=== PATIENT | female | born 1955 ===

== ENCOUNTER 2022-11-08 10:00 | Outpatient (RCR) | payer MEDICARE, SELFPAY | END 2022-11-21 09:05 | disposition home or self-care (01) | LOC: HO.PT 10:00 | PROVIDERS: Visit Provider Obstetrics & Gynecology | DX: N39.46 Mixed incontinence (principal) | CPT/HCPCS: 97110; 97112; 97140; 97162 ==

== ENCOUNTER 2024-07-23 13:25 | Outpatient (AMB) | payer MEDICARE, SELFPAY ==
[2024-07-23 13:33] VITALS: BP 126/68; PULSE 86; O2SAT 97; BMI 42.3
--- NOTE | 2024-07-23 13:33 | MHC.OFFVIS ---
Vital Signs 07/23/24 13:33 Height 5 ft 0.5 in Weight 220 lb 4 oz BMI 42.3 BP 126/68 Blood Pressure Location Lt brachial Position Sitting Pulse 86 Pulse Source Pulse Oximeter Pulse Oximetry (%) 97 Oxygen Delivery Method Room Air Intake Visit Reasons: arthralgia Intake Note: Patient presents for arthralgia follow up today. Allergies No Known Allergies [No Known Allergies*] Allergy (Unverified 07/23/24 13:37) HPI HPI arthralgia: Details: Daughter is present who interprets. Hebrew-speaking patient. She is experiencing pain mainly in her lower back and bilateral hips left worse than right. She continues to have right radiculopathy. When she was participating in physical therapy for lower back management, she had benefit. She is not compliant with doing exercises at home. She continues to feel a lump lateral hip region, which is painful for patient. It has not grown in size per patient. Review of Systems Const All systems reviewed & are unremarkable except as noted in HPI and below Physical Exam Vital Signs: Last Vital Signs Pulse 86 07/23/24 13:33 BP 126/68 07/23/24 13:33 Pulse Ox 97 07/23/24 13:33 Oxygen Delivery Method Room Air 07/23/24 13:33 BMI result Body Mass Index 42.3 Const Other: General: Comfortable CVS: RRR Respiratory: clear to auscultation bilaterally. Good respiratory effort Skin: No lesions seen MSK: Tender to palpate lower lumbar spinous process. Tender paraspinal muscles. Limited full lumbar flexion. Bilateral trochanteric bursa tenderness found. She has limited full external rotation of bilateral hips. Superior to right greater trochanter, she has a palpable mass about 2 cm in length greatest diameter and about a cm wide. No discoloration. Office Procedures AMB Joint Injection/Aspiration Joint Injection/Aspiration Details: Bilateral trochanteric bursa Prep: site was prepped using aseptic technique Injected into each site: 40 mg of, Kenalog, with 1 mL of and 1% plain lidocaine Procedure: The patient tolerated the procedure well. Postprocedure protocol was discussed with patient. Coding 65512 - Bilateral Large Joint Procedure code (CPT) selection complete AMB Joint Injection/Aspiration Coding 90663 - Bilateral Large Joint Procedure code (CPT) selection complete Office Meds lidocaine (PF) 10 mg/mL (1 %) injection solution Performing Provider: Norman Wadsworth MD Performing Location: [facility] Administered by: Norman Wadsworth MD on 07/23/24 21:24 Dose Route Admin Location Dispensed Lot Number Expiration Date [facility] Manager Relocation 10 mg Infiltration 2 mL [id number] [employer] Kenalog 40 mg/mL suspension for injection Performing Provider: Norman Wadsworth MD Performing Location[place] [facility] Administered by: Norman Wadsworth MD on 07/23/24 21:24 Dose Route Admin Location Dispensed Lot Number Expiration Date [facility] Manager Relocation 40 mg intrabursal 1 mL AP [id number] [employer] lidocaine (PF) 10 mg/mL (1 %) injection solution Performing Provider: Norman Wadsworth MD Performing Location: [facility] Administered by: Norman Wadsworth MD on 07/23/24 21:24 Dose Route Admin Location Dispensed Lot Number Expiration Date [facility] Manager Relocation 10 mg Infiltration 2 mL [id number] [employer] Kenalog 40 mg/mL suspension for injection Performing Provider: Norman Wadsworth MD Performing Location: [facility] Administered by: Norman Wadsworth MD on 07/23/24 21:24 Dose Route Admin Location Dispensed Lot Number Expiration Date [facility] Manager Relocation 40 mg intrabursal 1 mL AP [id number] [employer] Assessment & Plan Assessment & Plan (1) Lumbar spondylosis: Comment: With right radiculopathy. Myofascial strain is contributing from paraspinal muscles. Pain is uncontrolled. She had benefit with physical therapy. She agreed to do another round of physical therapy. Code(s): M47.816 - Spondylosis without myelopathy or radiculopathy, lumbar region Category: Medical Plan: PT ordered Apply heat to back daily Return to clinic in 3 months (2) Strain of lumbar paraspinal muscle: Comment: Uncontrolled lower back pain. Code(s): S39.012A - Strain of muscle, fascia and tendon of lower back, initial encounter Category: Medical Qualifiers: Encounter type: initial encounter Qualified Code(s): S39.012A - Strain of muscle, fascia and tendon of lower back, initial encounter Plan: See above (3) Greater trochanteric bursitis of both hips: Comment: Uncontrolled pain Code(s): M70.61 - Trochanteric bursitis, right hip; M70.62 - Trochanteric bursitis, left hip Category: Medical Plan: Patient received bilateral trochanteric bursa cortisone injections Return to clinic in 3 months (4) Palpable mass of soft tissue of thigh: Comment: She has a painful mass superior to right greater trochanter (2 cm x 1 cm) that has been present for at least 6 months. Unclear etiology Code(s): M79.89 - Other specified soft tissue disorders Category: Medical Plan: We will try to arrange ultrasound soft tissue for further evaluation of mass. Orders: Orders US extremity nonvascular Today M79.89 - Other specified soft tissue disorders PT Evaluation and Treatment 07/23/24 M47.816 - Spondylosis without myelopathy or radiculopathy, lumbar region, S39.012A - Strain of muscle, fascia and tendon of lower back, initial encounter AMB Joint Injection/Aspiration 07/23/24 M70.61 - Trochanteric bursitis, right hip, M70.62 - Trochanteric bursitis, left hip AMB Joint Injection/Aspiration 07/23/24 M70.61 - Trochanteric bursitis, right hip, M70.62 - Trochanteric bursitis, left hip Coding Level of Care Code Est Pt Level 4 (29189) Complex EM visit Add On G2211 Diagnoses Lumbar spondylosis M47.816 Strain of lumbar paraspinous muscle, initial encounter S39.012A Encounter type: initial encounter Greater trochanteric bursitis of both hips M70.61; M70.62 Palpable mass of soft tissue of thigh M79.89 CPT Codes Coding - 46594 - Bilateral Large Joint: 04741 - Bilateral Large Joint ([id number]) Coding - 91830 - Bilateral Large Joint: 12015 - Bilateral Large Joint ([id number])
== END 2024-07-23 14:32 | disposition home or self-care (01) ==
PROVIDERS: PCP Nurse Practitioner Family; Visit Provider Internal Medicine Rheumatology
DX: M70.61 Trochanteric bursitis, right hip (principal); M70.62 Trochanteric bursitis, left hip
CPT/HCPCS: 20610

== ENCOUNTER → 2024-07-23 13:25 | Outpatient (BNVA) | payer MEDICARE, SELFPAY | PROVIDERS: PCP Nurse Practitioner Family; Visit Provider Internal Medicine Rheumatology | DX: M70.61 Trochanteric bursitis, right hip (principal); M70.62 Trochanteric bursitis, left hip; M47.26 Other spondylosis with radiculopathy, lumbar region; M79.89 Other specified soft tissue disorders; S39.012A Strain of muscle, fascia and tendon of lower back, initial encounter; X58.XXXA Exposure to other specified factors, initial encounter; Y93.9 Activity, unspecified; Y92.9 Unspecified place or not applicable; Y99.9 Unspecified external cause status | CPT/HCPCS: 20610; 99212; J2003; J3300 ==

== ENCOUNTER 2024-08-04 15:31 | Outpatient (REF) | payer OTHER, SELFPAY ==
--- NOTE | ~2024-08-04 | US_ITS ---
EXAMINATION: Ultrasound extremity nonvascular. CLINICAL INDICATION: Palpable soft tissue mass of the thigh. COMPARISON: None. FINDINGS: Imaging through the popliteal mass of the right upper thigh reveals no focal echogenic or hypoechoic mass. No fluid collection. The soft tissues are normal. Recommend: Unremarkable ultrasound right upper thigh. Electronically signed by: Surinder Hurd MD 08/05/2024 08:39 AM [facility]
--- OUTSIDE RECORDS SUMMARY | 2024-08-04 19:32 | XMS_ITS | Encounter Summary ---
Author Organization [facility] Address [address] [address] Phone Care Team Providers Care Director Of Strategic Alliances Name Role Phone Maki Vivas NP Primary Care Provider [phone] Reason for Visit * Reason Onset Date Comments Med Refill 06/26/2024 Encounter Details Date Type Department Care Team (Late st Contact Info) Description 06/26/2024 Refill [facility] [address] [phone] Giulia Brown [place] [address] [facility] [address] [place] [address] Social History Tobacco Use Types Packs/Day Years Used Date Smoking Tobacco: Never Smokeless Tobacco: Never Alcohol Use Standard Drinks/Week Comments No 0 (1 standard drink = 0.6 oz pur e alcohol) Comments Unknown Sex and Gender Information Value Date Recorded Sex Assigned at Not on file Legal Sex Female 4:48 PM EST Gender Identity Not on file Sexual Orientation Not on file documented as of this encounter Plan of Treatment Upcoming Encounters Date Type Department Care Team (Late st Contact Info) Description 10/20/2024 10:15 AM EDT Office Visit [facility] [address] [phone] Sasha Key ARNP [address] [address] documented as of this encounter Visit Diagnoses Not on filedocumented in this encounter Care Teams Director Of Strategic Alliances Relationship Specialty Start Date End Date Maki Vivas NP [address] [place] [address] PCP - General 07/19/20 documented as of this encounter
--- OUTSIDE RECORDS SUMMARY | 2024-08-04 19:32 | XMS_ITS | Encounter Summary ---
Author Organization [facility] Address [address] [facility] [address] [place] [address] Phone Care Team Providers Care Tack Puller Name Role Phone Maki Vivas NP Primary Care Provider [phone] Encounter Details Date Type Department Care Team (Late st Contact Info) Description 01/11/2021 Orders Only [facility] [address] [facility] [address] [place] [address] Provider, MD Saloni [address] [place] [id number] Social History Tobacco Use Types Packs/Day Years [...] Office Visit [facility] [address] [facility] [address] [place] [address] Sasha Key ARNP [address] [facility] [address] [place] [address] documented as of this encounter Procedures Procedure Name Priority Date/Time Associated Diagnosis Comments EXT RESULT ENTRY Routine 12/30/2020 documented in this encounter Results * EXT RESULT ENTRY (12/30/2020) us Historical Provider LAB BLOOD ORDERABLES Kasie l Result documented in this encounter Visit Diagnoses Not on filedocumented in this encounter Care Teams Tack Puller Relationship Specialty Start Date End Date Maki Vivas NP [address] [place] [address] PCP - General 07/19/20 documented as of this encounter
--- OUTSIDE RECORDS SUMMARY | 2024-08-04 19:32 | XMS_ITS | Clinical Summary ---
Author Organization [facility] Address [address] [facility] [address] [place] [address] Phone Care Team Providers Care Manufacturing Shift Supervisor Name Role Phone Maki Vivas NP Primary Care Provider [phone] Allergies Active Allergy Reactions Criticality Noted Date Comments Aripiprazole 02/13/2022 Other reaction(s): dyskinesia Canagliflozin Diarrhea,Rash Low 02/13/2022 Candesartan 02/13/2022 Lisinopril Other (see comments) 01/07/2021 Losartan 02/13/2022 Other reaction(s): muscle aches Medications albuterol HFA (Ventolin HFA) 108 (90 Base) MCG/ACT inhaler 2 puffs 2 (two) times a day Active fluticasone HFA (Flovent HFA) 220 MCG/ACT inhaler Comments: Filled Date: Jan 12 2016 12:00AM Patient Notes: TOME BUBBA INHALACION POR VIA ORAL DOS VECES AL CHACHO (RINSE MOUTH AND THR OAT AFTER USE) Duration: 30 6 Active insulin aspart (NovoLOG FLEXPEN) 100 UNIT/ML injection 36 units with breakfast, 34 units with lunch and 42 units with supper Active insulin glargine (Lantus SoloStar) 100 UNIT/ML injection Comments: Filled Date: Nov 23 2015 12:00AM Patient Notes: INJECT 80 UNITS SUBCUTANEOUS INJECTION DAILY AT BEDTIME Duration: 90 5 Active loratadine-pseud oephedrine (CLARITIN-D 24-hour) 10-240 MG per 24 hr tablet Take 1 tablet by mouth 1 (one) time each day Active simvastatin (ZOCOR) 20 MG tablet Comments: Filled Date: Jan 12 2016 12:00AM Patient Notes: TAKE 1 TABLET BY MOUTH DAILY Duration: 90 5 Active losartan (COZAAR) 50 MG tabletIndication s:Hypertensive disorder,Type 2 diabetes mellitus with other diabetic kidney complication (HCC) TOME DOS TABLETAS POR VIA ORAL TODOS LOS DEL RIO 180 tablet 3 3 Active acetaminophen (TYLENOL 8 HOUR) 650 MG 8 hr tablet Take 650 mg by mouth every 8 (eight) hours if needed for mild pain Do not crush, chew, or split. Active meloxicam (MOBIC) 15 MG tablet Take 15 mg by mouth 1 (one) time each day Active magnesium oxide (MAG-OX) 400 MG tabletIndication s:Hypomagnesemia Take 1 tablet (400 mg total) by mouth 1 (one) time each day 30 tablet 11 4 025 Active atenolol-chlorth alidone (TENORETIC) 100-25 MG per tabletIndication s:Hypertensive disorder Take 1 tablet by mouth 1 (one) time each day 30 tablet 11 4 025 Active Active Problems Problem Noted Date Diagnosed Date Allergic rhinitis 02/20/2023 02/20/2023 Anxiety 02/20/2023 02/20/2023 Arthritis 02/20/2023 02/20/2023 Gastroesophageal reflux disease 02/20/2023 02/20/2023 Hypoventilation 02/20/2023 02/20/2023 Incontinence 02/20/2023 02/20/2023 Nocturnal enuresis 02/20/2023 02/20/2023 Severe obesity 02/20/2023 02/20/2023 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 (02/20/2023): Grade 1 endometroid adenocarcinoma 06/201515 Grade 1 endometroid adenocarcinoma 06/2015 Asthma 02/13/2022 Depressive disorder 02/13/2022 Diabetes insipidus 02/13/2022 Family history of cancer of colon 02/13/2022 Obstructive sleep apnea syndrome 02/13/2022 Patient care statuses 02/13/2022 Hypertensive disorder 01/07/2021 Overview (02/20/2023): with hx of hyperfilitration Proteinuria 01/07/2021 Type 2 diabetes mellitus 01/07/2021 Hyperlipidemia 08/28/2008 Menopause 01/16/2008 Resolved Problems Problem Noted Date Diagnosed Date Resolved Date Wwghmqjoqya-jwptnqtfeq-cmbkp e inhibitor adverse reaction 02/13/2022 02/13/2022 Lumbosacral spondylosis 02/13/2022 08/0 02/2022 Obese abdomen 02/13/2022 02/13/2022 Tendinitis of shoulder region 02/13/2022 02/13/2022 Benign polyp of colon 04/28/20162021 Encounters Date Type Department Care Team Description 06/26/2024 Refill [facility] [address] [facility] [address] [place] [phone] Giulia Brown MA 06/25/2024 Refill [facility] [address] [facility] [address] [place] [phone] Lesley Dailey MA from Last 3 Months Immunizations Name Administration Dates Next Due Pfizer SARS-COV-2 03/24/2022,12/23/2020,12/03/19 21 Pneumococcal Conjugate 13-Valent 03/24/2022 Pneumococcal Polysaccharide 09/03/2020, 7 SARS-CoV-2, Unspecified 09/01/2021 Shingrix 01/12/2021,09/03/2020 Tdap 03/14/2018 Family History Medical History Relation Comments Cancer Father colon Diabetes Mother Relation Status Comments Father Mother Social History Tobacco Use Types Packs/Day Years Used Date Smoking Tobacco: Never Smokeless Tobacco: Never Tobacco Cessation:Counseling Given: No Alcohol Use Standard Drinks/Week Comments No 0 (1 standard drink = 0.6 oz pur e alcohol) Comments Unknown Sex and Gender Information Value Date Recorded Sex Assigned at Not on file Legal Sex Female 4:48 PM EST Gender Identity Not on file Sexual Orientation Not on file Last Filed Vital Signs Vital Sign Reading Time Taken Comments Blood Pressure 124/70 02/25/2024 2:27 PM EDT Pulse 70 02/25/2024 2:04 PM EDT Temperature - - Respiratory Rate - - Oxygen Saturation 97% 02/20/2023 2:39 PM EDT Inhaled Oxygen Concentration - - Weight 102 kg (225 lb) 02/25/2024 2:04 PM EDT Height 160 cm (5' 3 ) 01/11/2021 2:43 PM EDT Body Mass Index 39.86 01/11/2021 2:43 PM EDT Plan of Treatment Upcoming Encounters Date Type Department Care Team (Late st Contact Info) Description 10/20/2024 10:15 AM EDT Office Visit [facility] [address] [facility] [address] [place] [address] Sasha Key ARNP [address] [phone] Health Maintenance Due Date Last Done Comments Breast Cancer Screening 1955 Colorectal Cancer Screening: Annual FOBT 2006 Colorectal Cancer Screening: Colonoscopy 2006 Colorectal Cancer Screening: Sigmoidoscopy 2006 Diabetes: Ophthalmology Exam 08/09/2020 Diabetes: Pedal Pulse Checked 08/09/2020 Diabetes: Sensory Foot Exam 08/09/2020 Diabetes: Visual Foot Exam 08/09/2020 Diabetes: Hemoglobin A1C 04/01/2021 021, 12/04/2018 Influenza Vaccine (#1) 2024 Pneumococcal Vaccine: 65+ Years (4 of 4 - PPSV23 or PCV20) 09/03/2025 03/24/2022, 09/03/2020, 01/11/2007 Hepatitis B Vaccine Aged Out No longe r eligible based on patient's age to complete this topic Procedures Procedure Name Priority Date/Time Associated Diagnosis Comments EXT RESULT ENTRY Routine 12/30/2020 from Last 3 Months or Most Recently Relevant to Health Maintenance Results * (ABNORMAL) EXT RESULT ENTRY (12/30/2020) Glucose 166 60 - 200 Hemoglobin A1C 6.9(A) 4.0 - 6.0 12/30/2020 us Historical Provider LAB BLOOD ORDERABLES Kasie l Result from Last 3 Months or Most Recently Relevant to Health Maintenance Insurance ([id number]) ([id number]) Care Teams Manufacturing Shift Supervisor Relationship Specialty Start Date End Date Maki Vivas NP [address] [place] [address] PCP - General 07/19/20
== END 2024-08-04 15:32 | disposition home or self-care (01) ==
LOC: HO.US 15:31
PROVIDERS: Visit Provider Internal Medicine Rheumatology
DX: M79.89 Other specified soft tissue disorders (principal)
CPT/HCPCS: 76882

== ENCOUNTER → 2024-08-04 15:33 | Outpatient (BNV) | payer OTHER, SELFPAY | PROVIDERS: Visit Provider Radiology Diagnostic Radiology | DX: M79.89 Other specified soft tissue disorders (principal) | CPT/HCPCS: 76882 ==